=== PATIENT | female | born 1995 | race Two or more races ===

== ENCOUNTER 2021-04-23 23:36 | Emergency (ER) | payer OTHER ==
[~2021-04-23] VITALS: Ht 162.6 cm; Wt 60.3 kg
== END 2021-04-24 11:06 | disposition home or self-care (01) ==
LOC: ER 23:36
DX: R06.02 Shortness of breath (principal); T40.7X5A Adverse effect of cannabis (derivatives), initial encounter; Y92.89 Other specified places as the place of occurrence of the external cause